=== PATIENT | female | born 1980 | race Hispanic/Latino ===

== ENCOUNTER 2019-05-15 17:54 | Inpatient (IN) | payer MEDICAID, OTHER, SELFPAY ==
[2019-05-15 18:42] VITALS: BMI 34.9
[2019-05-15] MEDS ORDERED: Lidocaine 1% (PF) 30 ML VIAL SC PRN (19:01)
[2019-05-15] MEDS ORDERED: Promethazine HCl 25 MG/ML VIAL IM PRN (19:01)
[2019-05-15] MEDS ORDERED: NS / Oxytocin 40 units/1000ml 1,000 ML IV PRN (19:01)
[2019-05-15] MEDS ORDERED: Ondansetron PF 4 MG/2 ML Vial IVP PRN (19:01)
[2019-05-15] MEDS ORDERED: hydrALAZINE 20 MG/ML VIAL SLOW IVP PRN (19:01)
[2019-05-15] MEDS ORDERED: Ibuprofen 800 MG TAB PO PRN (19:01)
[2019-05-15 19:09] LABS: Hemoglobin 11.1 g/dL (12.0-16.0); Mean Corpuscular HGB CONC 32.2 g/dL (32.0-36.0); Mean Corpuscular Hemoglobin 24.9 pg (27.0-31.0); Mean Corpuscular Volume 77.2 fL (78.0-98.0); Mean Platelet Volume 12.1 fL (7.4-10.4); Platelet Count 264 thou/uL (130-400); Red Blood Cell (RBC) Count 4.45 mill/uL (4.20-5.40); White Blood Cell (WBC) Count 9.8 thou/uL (4.8-10.8)
[2019-05-15] MEDS ORDERED: Misoprostol 100 MCG TAB VAG SCH (19:15)
[2019-05-15] MEDS ORDERED: Penicillin G Potassium 5 MILL.UNITS in Sodium Chloride 0.9% 100 ML IVPB SCH (19:15)
[2019-05-15] MEDS ORDERED: NS w/ Oxytocin 10 units 500 ML IV SCH (19:30)
--- NOTE | 2019-05-15 19:30 | PDOC.FPROB ---
FMR OB H&P: HPI - History of Present Illness Chief Complaint: IOL Indentification: 39 y/o @ 39.3 wks by 13.5wk sono History of Present Illness: Presents for IOL. Pt endorses movement. Denies ctx, LOF, vaginal bleeding , vaginal d/c. She has h/o A1GDM and reports all fasting < 95 and all 2h PP < 120. Denies H/A, vision changes, RUQ pain, SOB. Primary Care Physician: Dr. 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, iron deficiency anemia on iron, AMA - OB Labs Blood type: O RH: positive Antibody Screen: positive (Anti c (titer 2) and E (titer 0)) HIV: negative RPR: negative HepBsAg: negative Rubella: immune Gonorrhea: negative Chlamydia: negative Pap Smear: NILM, HPV negative 1 hour gtt: 181 3 hour GTT: 98/185/153/136 (2/4 abnormal) GBS: positive H&H: 11.1/32.9 -> 8.8/27.4 -> 10.0/31.5 FMR OB H&P: History - Past Medical History PMH: Umbilical Hernia Varicose Veins Iron deficiency anemia - OB History OB History: 6 prior term 's 1 ectopic s/p R salpingo-oophorectomy - BULK CLERK History BULK CLERK History: NILM, HPV neg, no h/o STI's - Surgical History Sx History: ex lap with R salpingo-oophorectomy with subsequent blood transfusion - Social History Social History: , denies tobacco, EtOH, or drug use - Family History Family History: HTN, DM, autism FMR OB H&P: Medications - Current Home Medications: Medication Instructions Recorded Confirmed Type Vitamin 1 tab PO DAILY #0 tab 09/20/13 05/27/16 Rx Ferrous Fumarate [Ferrocite] 1 tablet PO BID 05/15/19 05/15/19 History Allergies/Adverse Reactions: Allergies Allergy/AdvReac Type Severity Reaction Status Date / Time No Known Drug Allergies Allergy Verified 05/19/16 04:07 FMR OB H&P: ROS - Review of Systems General: denies: fever/chills, weight/appetite/sleep changes Eyes: denies: vision changes, scotomas ENT: denies: nasal congestion, sore throat Cardiovascular: reports: edema. denies: chest pain Respiratory: denies: cough, shortness of breath Gastrointestinal: denies: abdominal pain, vomiting, diarrhea Genitourinary (Female): denies: dysuria, vaginal discharge, vaginal bleeding, contractions Musculoskeletal: denies: pain, tenderness Neurologic: denies: numbness, weakness Integumentary: denies: itching, rash Hematologic/Lymphatic: denies: prolonged or excessive bleeding Psychological: denies: depression, anxiety FMR OB H&P: Vital Signs - Maternal Vital signs: BP 124/60, HR 76, RR 14, O2 100% on RA, Temp 97.9 - Heart Tones Baseline: 130 Variability: moderate Acceleration: present Deceleration: absent Category: category 1 [place] contractions every: None FMR OB H&P: Physical Exam - Physical Exam General: NAD, awake, alert and oriented HEENT: normocephalic and atraumatic, EOMI, MMM, conjunctiva clear, grossly normal vision, grossly normal hearing Neck: supple, no LAD Heart: RRR, normal S1/S2, no murmurs/rubs/gallops, pulses present, other (trace pedal edema) General: CTAB, no respiratory distress, good air movement, no rales/rhonchi, no wheezing Abdomen: soft, gravid, non-tender, other (reducible umbilical hernia) Musculoskeletal: pulses present, FROM in all four extremities Neurological: no clonus, no focal deficit Skin: good tugor, capillary refill <2 seconds, other (varicose veins on BLE) Psychiatric: intact recent and remote memory, good judgement and insight - Pelvic Exam Vulva: normal hair distribution, no discharge, no blood SVE: 350/-3 Membranes: intact Presentation: vertex FMR OB H&P: Results - Labs Lab results: Laboratory Results - last 24 hr 05/15/19 18:52 WBC 9.8 RBC 4.45 Hgb 11.1 L Hct 34.4 L MCV 77.2 L MCH 24.9 L MCHC 32.2 RDW 22.0 H Plt Count 264 MPV 12.1 H FMR OB H&P: A/P - Problem List (1) Encounter for induction of labor Current Visit: Yes Status: Acute Code(s): Z34.90 - ENCNTR FOR SUPRVSN OF NORMAL , UNSP, UNSP TRIMESTER Comment: SVE 4/-2, AROM with clear fluid at 0600 -Continue pitocin, currently at 18 -Monitor cervical check and FHT -Will place IUPC at next check if no significant change (2) with history of ectopic Current Visit: Yes Status: Acute Code(s): O09.10 - SUPRVSN OF PREG WITH HISTORY OF ECTOPIC PREG, UNSP TRIMESTER Comment: s/p ex-lap with R salpingo- oophorectomy in prior (3) AMA (advanced maternal age) multigravida 35+ Current Visit: Yes Status: Acute Code(s): O09.529 - SUPERVISION OF ELDERLY MULTIGRAVIDA, UNSPECIFIED TRIMESTER Qualifiers: Trimester: third trimester Qualified Code(s): O09.523 - Supervision of elderly multigravida, third trimester Comment: pt saw MFM for anatomy sono but declined cfDNA (4) Grand multiparity Current Visit: Yes Status: Acute Code(s): Z64.1 - PROBLEMS RELATED TO MULTIPARITY Comment: At higher risk for PPH, will be quick to treat if necessary (5) Gestational diabetes, diet controlled Current Visit: Yes Status: Acute Code(s): O24.410 - GESTATIONAL DIABETES MELLITUS IN , DIET CONTROLLED Qualifiers: Trimester: third trimester Qualified Code(s): O24.410 - Gestational diabetes mellitus in , diet controlled Comment: Has been well controlled -Will check glucose at time of induction (6) Iron deficiency anemia Current Visit: Yes Status: Acute Code(s): D50.9 - IRON DEFICIENCY ANEMIA, UNSPECIFIED Comment: Has been on iron, most recent Hb 10.0 -Will repeat today. (7) Positive GBS test Current Visit: Yes Status: Acute Code(s): B95.1 - STREPTOCOCCUS, GROUP B, CAUSING DISEASES CLASSD ELSWHR Comment: Pt GBS positive with no known drug allergies -s/p 3 doses penicillin, will continue Disposition: Admit to L&D for IOL Discussion: Date/Time: 05/15/191928 This H&P was discussed with who agrees with the above documentation and plan. Signature: Sarah Peña MD, PGY-3 Addendum - Attending - Attending Attestation Date/Time: 05/15/192017 I personally evaluated the patient and discussed the management with Dr. Peña I agree with the History, Examination, Assessment and Plan documented above with any addition or exceptions noted below. Patient admitted for mIOL 2/2 A1GDM, obesity, and AMA. Cervical exam favorable. Will initiate pit per protocol. Start PNC for GBS ppx. Does not want epidural. Fetus reactive and cat 1 tracing. Intermittent contractions that are nonpainful. Cephalic. EFW 8 lbs. Trend glucose in active labor. Repeat exam in 4 hours or sooner if needed. Jayshree
[2019-05-15] MEDS: Lactated Ringer's 1,000 ML IV SCH (19:41)
[2019-05-15 20:11] LABS: Syphilis Antibody Nonreactive (Nonreactive); Syphilis Antibody Index 0.07 S/CO (<1.00 Non-Reactive)
[2019-05-15 20:12] LABS: Hep B Surf Ag Non-Reactive S/CO (NonReactive)
--- NOTE | 2019-05-15 23:53 | PDOC.LDPN ---
Labor & Delivery Progress Note - Subjective Subjective: painful contractions - Objective Vital signs reviewed and normal: yes General: NAD Uterine fundus: palpable contractions SVE: 3.5/60/-3 @ 2345 FHT: category 1, variability present [place] contractions every: 2-4 min - Assessment (1) Encounter for induction of labor Code(s): Z34.90 - ENCNTR FOR SUPRVSN OF NORMAL , UNSP, UNSP TRIMESTER Current Visit: Yes Status: Acute Comment: SVE 4/75/-2, AROM with clear fluid at 0600 -Continue pitocin, currently at 18 -Monitor cervical check and FHT -Will place IUPC at next check if no significant change (2) Grand multiparity Code(s): Z64.1 - PROBLEMS RELATED TO MULTIPARITY Current Visit: Yes Status: Acute Comment: At higher risk for PPH, will be quick to treat if necessary (3) Positive GBS test Code(s): B95.1 - STREPTOCOCCUS, GROUP B, CAUSING DISEASES CLASSD ELSWHR Current Visit: Yes Status: Acute Comment: Pt GBS positive with no known drug allergies -s/p 3 doses penicillin, will continue Plan: continue plan of care, pitocin for augmentation Addendum - Attending - Attending Attestation Date/Time: 05/15/19 0186 I personally evaluated the patient and discussed the management with Dr. Peña I agree with the History, Examination, Assessment and Plan documented above with any addition or exceptions noted below. Admitted for mIOL for A1GDM, obesity, AMA, and anti-c/anti-E with stable titers Progressing as expected. Continue current management. Cat 1 tracing. Repeat exam in 2 to 4 hours or prn. Jayshree
[2019-05-16] MEDS: Penicillin G 2.5 MILL.units 2.5 MILL.UNITS in Premix Bag 1 BAG IVPB SCH ×3 (00:14→13:35)
[2019-05-16] MEDS: Lactated Ringer's 1,000 ML IV SCH ×2 (03:14→13:35)
--- NOTE | 2019-05-16 03:18 | PDOC.LDPN ---
Labor & Delivery Progress Note - Subjective Subjective: comfortable - Objective Vital signs reviewed and normal: yes General: NAD SVE: /-3 @ 0310 FHT: category 1, variability present [place] contractions every: 4-5 min - Assessment (1) Encounter for induction of labor Code(s): Z34.90 - ENCNTR FOR SUPRVSN OF NORMAL , UNSP, UNSP TRIMESTER Current Visit: Yes Status: Acute Comment: SVE /-2, AROM with clear fluid at 0600 -Continue pitocin, currently at 18 -Monitor cervical check and FHT -Will place IUPC at next check if no significant change (2) Grand multiparity Code(s): Z64.1 - PROBLEMS RELATED TO MULTIPARITY Current Visit: Yes Status: Acute Comment: At higher risk for PPH, will be quick to treat if necessary (3) Positive GBS test Code(s): B95.1 - STREPTOCOCCUS, GROUP B, CAUSING DISEASES CLASSD ELSWHR Current Visit: Yes Status: Acute Comment: Pt GBS positive with no known drug allergies -s/p 3 doses penicillin, will continue Plan: continue plan of care, pitocin for augmentation Addendum - Attending - Attending Attestation Date/Time: 05/16/19 8482 I personally evaluated the patient and discussed the management with Dr. Peña I agree with the History, Examination, Assessment and Plan documented above with any addition or exceptions noted below. Admitted for mIOL 2/2 A1GDM, obesity, AMA, and anti-c/anti-E. Progressing well. Fetus tolerating pitocin well. Continue per protocol. Consider AROM if able on next check. Discussed with mother. Jayshree
--- NOTE | 2019-05-16 06:10 | PDOC.LDPN ---
Labor & Delivery Progress Note - Subjective Subjective: comfortable - Objective Vital signs reviewed and normal: yes General: NAD Uterine fundus: palpable contractions SVE: 75/-2 @ 0600 FHT: category 1, variability present [place] contractions every: 2-4 min AROM: clear fluid - Assessment (1) Encounter for induction of labor Code(s): Z34.90 - ENCNTR FOR SUPRVSN OF NORMAL , UNSP, UNSP TRIMESTER Current Visit: Yes Status: Acute Comment: SVE 75/-2, AROM with clear fluid at 0600 -Continue pitocin, currently at 18 -Monitor cervical check and FHT -Will place IUPC at next check if no significant change (2) Grand multiparity Code(s): Z64.1 - PROBLEMS RELATED TO MULTIPARITY Current Visit: Yes Status: Acute Comment: At higher risk for PPH, will be quick to treat if necessary (3) Positive GBS test Code(s): B95.1 - STREPTOCOCCUS, GROUP B, CAUSING DISEASES CLASSD ELSWHR Current Visit: Yes Status: Acute Comment: Pt GBS positive with no known drug allergies -s/p 3 doses penicillin, will continue Addendum - Attending - Attending Attestation Date/Time: 05/16/19 0850 I personally evaluated the patient and discussed the management with Dr. Peña I agree with the History, Examination, Assessment and Plan documented above with any addition or exceptions noted below. AROM with clear fluid. Continue pit per protocol. Continue PCN for GBS ppx. Repeat exam in 2 to 4 hours. IUPC if needed to help titrate pitocin. Cat 1 tracing. Trend glucose in active labor. Jayshree
[2019-05-16] MEDS ORDERED: Butorphanol Tartrate 1 MG/ML VIAL ONE (07:39)
[2019-05-16] MEDS ORDERED: Butorphanol Tartrate 1 MG/ML VIAL SLOW IVP PRN (07:40)
[2019-05-16] MEDS ORDERED: Lidocaine 1% (PF) 30 ML VIAL ONE (07:52)
[2019-05-16] MEDS ORDERED: NS / Oxytocin 40 units/1000ml 1,000 ML ONE ×2 (07:52→07:53)
[2019-05-16] MEDS ORDERED: Methylergonovine 0.2 MG/ML VIAL ONE (07:53)
[2019-05-16] MEDS ORDERED: Carboprost 250 MCG/ML AMP ONE (07:53)
--- NOTE | 2019-05-16 08:38 | PDOC.OPDEL ---
OB Operative/Delivery Note Delivery Dr/Surgeon: Dr. Laurence Fontana and Dr. Peña with Dr. Villareal attending Pre-Delivery Diagnosis: medically indicated induction, other (A1GDM) Procedure/Post Delivery Dx: spontaneous vaginal delivery Weeks gestation: 39 (39w4d) Anesthesia: none - Findings A Sex: male - 1 min: 8 - 5 min: 9 - Additional Findings/Plan Placenta delivered: spontaneous Repaired Obstetrical Laceration: 1st degree (hemostatic) Estimated blood loss: 50 mL Compilations/Other Findings: This is a 39 year old female @ 39.4 wks who delivered a viable M infant at 0849 on 05/16/19. Following an uneventful antepartum course, a vigorous male was delivered over an intact perineum in the occipitoanterior position. Anterior Shoulder and then remainder of the body delivered. No nuchal cord. The head was held down and mouth and nares were bulb suctioned. Cord clamped and cut and cord blood collected. Placenta delivered intact with a 3 vessel cord noted. Fundal massage was performed and the fundus was firm. The cervix and vagina were inspected and found to have a first degree perineal laceration that was hemostatic. went to nursery in good condition for routine care. Apgars were 8&9 at 1 & 5 minutes, respectively. Patient tolerated delivery well and went to after routine recovery/care. Post delivery plan: routine recovery Addendum - Attending - Attending Attestation Date/Time: 05/16/19 1123 I personally supervised and assisted with the delivery.
[2019-05-16] MEDS: Misoprostol 200 MCG TAB ONE ×2 (09:00→09:21)
[2019-05-16] MEDS ORDERED: NS / Oxytocin 40 units/1000ml 1,000 ML IV SCH (13:19)
[2019-05-16] MEDS ORDERED: hydrALAZINE 20 MG/ML VIAL SLOW IVP PRN (13:19)
[2019-05-16] MEDS ORDERED: Milk Of Magnesia 30 ML UDCUP PO PRN (13:19)
[2019-05-16] MEDS ORDERED: Bisacodyl 10 MG SUPP PR PRN (13:19)
[2019-05-16] MEDS ORDERED: diphenhydrAMINE 25 MG CAP PO PRN (13:19)
[2019-05-16] MEDS: Ibuprofen 800 MG TAB PO SCH ×2 (14:30→18:20)
[2019-05-16] MEDS: Ferrous Sulfate 325 MG TAB PO SCH (14:30)
[2019-05-16] MEDS: Lanolin Ointment 7 GM TUBE TOP PRN (18:20)
[2019-05-16] MEDS ORDERED: HYDROcodone/Acetaminophen 7.5/325 mg Tablet PO SCH (18:45)
[2019-05-16] MEDS: Docusate Calcium (SURFAK) 240 MG CAP PO SCH (21:29)
--- NOTE | 2019-05-17 04:47 | PDOC.OBPPN ---
FMR OB PN: Subj - Interval History Day: 1 39 y/o @ 39.4 WGA delivered via @ 0849 on 05/16. Pt doing well this AM. Reports minimal lochia and abdominal pain well controlled with ibuprofen. She is tolerating PO and has ambulated some. She is voiding and passing flatus. She reports breast feeding is going well. Denies F/C , N/V. FMR OB PN: Obj - Maternal Vital signs: BP: 121/60 HR: 69 RR: 20 Tmax: 98.2 Pox: 100% on RA Wt: 86.6kg - Urine output I&O: 05/15/19 05/16/19 05/17/19 06:59 06:59 06:59 Output Total 222 Balance -222 FMR OB PN: Exam - Physical Exam General: NAD, awake, alert and oriented HEENT: MMM, conjunctiva clear, grossly normal vision, grossly normal hearing Neck: supple, FROM Heart: RRR, normal S1/S2, no murmurs/rubs/gallops, pulses present, no edema General: CTAB, no respiratory distress, good air movement, no rales/rhonchi, no wheezing Abdomen: soft, fundus(cm) (firm below umbilicus), non-tender, bowel sound present Musculoskeletal: pulses present, FROM in all four extremities Neurological: no clonus, no focal deficit Skin: good tugor, capillary refill <2 seconds Psychiatric: intact recent and remote memory, good judgement and insight FMR OB PN: Data - Labs Lab results: Laboratory Results - last 24 hr 05/15/19 18:52 Antibody Identification ANTI-c FMR OB PN: A/P - Problem List (1) Term delivered Current Visit: Yes Status: Acute Code(s): O80 - ENCOUNTER FOR FULL-TERM UNCOMPLICATED DELIVERY Comment: PPD#1 s/p -Continue routine care -PNV -Encourage breast feeding -Ibuprofen for pain -Encourage ambulation (2) Positive GBS test Current Visit: Yes Status: Acute Code(s): B95.1 - STREPTOCOCCUS, GROUP B, CAUSING DISEASES CLASSD ELSWHR Comment: Pt GBS positive with no known drug allergies -s/p 3 doses penicillin (3) AMA (advanced maternal age) multigravida 35+ Current Visit: Yes Status: Acute Code(s): O09.529 - SUPERVISION OF ELDERLY MULTIGRAVIDA, UNSPECIFIED TRIMESTER Qualifiers: Trimester: third trimester Qualified Code(s): O09.523 - Supervision of elderly multigravida, third trimester Comment: pt saw MFM for anatomy sono but declined cfDNA (4) Gestational diabetes, diet controlled Current Visit: Yes Status: Acute Code(s): O24.410 - GESTATIONAL DIABETES MELLITUS IN , DIET CONTROLLED Qualifiers: Trimester: third trimester Qualified Code(s): O24.410 - Gestational diabetes mellitus in , diet controlled Comment: Has been well controlled -Will need to be screened for diabetes 6 weeks (5) Iron deficiency anemia Current Visit: Yes Status: Acute Code(s): D50.9 - IRON DEFICIENCY ANEMIA, UNSPECIFIED Comment: Has been on iron, Hb 11.1 on admission -Will repeat today -Continue iron if needed Disposition: Continue to monitor on and possible d/c home later today pending clinical course Discussion: Date/Time: 05/17/19 1065 This H&P was discussed with Dr. Villareal who agrees with the above documentation and plan. Signature: Sarah Peña MD, PGY-3 Addendum - Attending - Attending Attestation Date/Time: 05/17/19 1315 I personally evaluated the patient and discussed the management with Dr. Peña. I agree with the History, Examination, Assessment and Plan documented above with any addition or exceptions noted below.
[2019-05-17] MEDS: Ibuprofen 800 MG TAB PO SCH ×3 (04:53→20:18)
[2019-05-17 05:41] LABS: Hemoglobin 10.1 g/dL (12.0-16.0); Mean Corpuscular HGB CONC 31.8 g/dL (32.0-36.0); Mean Corpuscular Hemoglobin 24.9 pg (27.0-31.0); Mean Corpuscular Volume 78.1 fL (78.0-98.0); Mean Platelet Volume 11.3 fL (7.4-10.4); Platelet Count 238 thou/uL (130-400); RBC Distribution Width 22.1 % (11.5-14.5); Red Blood Cell (RBC) Count 4.07 mill/uL (4.20-5.40); White Blood Cell (WBC) Count 8.4 thou/uL (4.8-10.8)
[2019-05-17] MEDS ORDERED: Prenatal Vitamin 1 TAB PO SCH (09:00)
[2019-05-17] MEDS: Docusate Calcium (SURFAK) 240 MG CAP PO SCH ×2 (09:30→20:18)
[2019-05-17] MEDS: Ferrous Sulfate 325 MG TAB PO SCH ×2 (09:30→15:39)
[2019-05-17] MEDS ORDERED: Adacel (T-DAP) 0.5 ML SYRINGE IM ONE (13:19)
[2019-05-17] MEDS: Lanolin Ointment 7 GM TUBE TOP PRN (20:18)
[2019-05-17 20:30] VITALS: BP 139/65; TEMP 98.1
== END 2019-05-17 21:00 | disposition home or self-care (01) | DRG 807 ==
LOC: L&D 17:54 → 3SW 05-16 13:38
PROVIDERS: ADMIT Student in an Organized Health Care Education/Training Program; ATTEND Student in an Organized Health Care Education/Training Program
PROC: 10E0XZZ Delivery of Products of Conception, External Approach (ICD-10-PCS; principal; 2019-05-16)
PROC: 10907ZC Drainage of Amniotic Fluid, Therapeutic from Products of Conception, Via Natural or Artificial Opening (ICD-10-PCS; 2019-05-16)
PROC: 3E0P7VZ Introduction of Hormone into Female Reproductive, Via Natural or Artificial Opening (ICD-10-PCS; 2019-05-16)
PROC: 3E033VJ Introduction of Other Hormone into Peripheral Vein, Percutaneous Approach (ICD-10-PCS; 2019-05-16)
PROC: 0HQ9XZZ Repair Perineum Skin, External Approach (ICD-10-PCS; 2019-05-16)
DX: O24.420 Gestational diabetes mellitus in childbirth, diet controlled (principal); Z37.0 Single live birth; O99.824 Streptococcus B carrier state complicating childbirth; O99.02 Anemia complicating childbirth; D50.9 Iron deficiency anemia, unspecified; O99.214 Obesity complicating childbirth; E66.9 Obesity, unspecified; O70.0 First degree perineal laceration during delivery; Z3A.39 39 weeks gestation of pregnancy; Z79.899 Other long term (current) drug therapy
CPT/HCPCS: 36415; 36416; 76815; 85027; 86780; 86850; 86870; 86900; 86901; 86905; 86922; 87340; 90715; J0595; J2001; J2210; J2540; J2590; J3490

== ENCOUNTER 2021-07-05 15:04 | Emergency (ER) | payer MEDICAID, SELFPAY ==
[2021-07-05] MEDS ORDERED: Ketorolac Tromethamine 30 MG/ML VIAL ONE (16:29)
[2021-07-05] MEDS ORDERED: Orphenadrine Citrate 60 MG/2 ML VIAL IM SCH (16:30)
== END 2021-07-05 18:32 | disposition home or self-care (01) ==
LOC: ERS 15:04
DX: S16.1XXA Strain of muscle, fascia and tendon at neck level, initial encounter (principal); X58.XXXA Exposure to other specified factors, initial encounter
CPT/HCPCS: 71045; 93005; 96372; J1885; J2360

== ENCOUNTER 2022-08-13 10:48 | Outpatient (CLI) | payer OTHER | END 2022-08-13 10:49 | disposition home or self-care (01) | LOC: BICULT 10:48 | PROVIDERS: ATTEND Family Medicine | DX: O09.522 Supervision of elderly multigravida, second trimester (principal); Z3A.22 22 weeks gestation of pregnancy | CPT/HCPCS: 76805 ==